=== PATIENT | male | born 1995 | race Caucasian/White ===

== ENCOUNTER → 2019-12-02 | Outpatient (CLI) | payer BC, OTHER ==
--- NOTE | 2019-12-02 23:10 | REP ---
LEFT KNEE, FIVE VIEWS: There is no evidence of an acute fracture, dislocation, or intrinsic bone disease. IMPRESSION: No fracture or dislocation. Electronically Signed by Jaime Mccullough MD 12/03/2019 01:40 P
== END ==
LOC: M LRY 15:48
PROVIDERS: ATTEND Physician Assistant
DX: M79.662 Pain in left lower leg (principal)